=== PATIENT | female | born 1975 | race Caucasian/White ===

== ENCOUNTER 2024-12-27 19:32 | Emergency (ER) | payer SELFPAY ==
--- OUTSIDE RECORDS SUMMARY | 2024-12-27 19:34 | XMS_ITS | Clinical Summary ---
Author Organization [facility] Address [address] [place] [address] Phone Care Team Providers Care Dietetics Professor Name Role Phone Latisha Copeland MD Primary Care Provider Unav ailable Allergies Active Allergy Reactions Criticality Noted Date Comments Ibuprofen Nausea 01/07/2016 Medications gabapentin (NEURONTIN) 600 MG Tablet Take 600 mg by mouth daily. Active traMADol (ULTRAM) 50 MG TabletIndicatio ns:Acute pain of right foot Take 1 Tablet by mouth every 8 hours as needed for Moderate or more severe pain. 12 Tablet 04/30/2023 Active Social History Tobacco Use Types Packs/Day Years Used Date Smoking Tobacco: Never Alcohol Use Standard Drinks/Week Comments No 0 (1 standard drink = 0.6 oz pur e alcohol) Comments No Sex and Gender Information Value Date Recorded Sex Assigned at Not on file Legal Sex Female 10:11 PM CDT Gender Identity Not on file Sexual Orientation Not on file Last Filed Vital Signs Vital Sign Reading Time Taken Comments Blood Pressure 145/96 04/30/2023 5:54 PM CDT Pulse 93 04/30/2023 5:54 PM CDT Temperature 36.3 C (97.4 F) 04/30/2023 5:54 PM CDT Respiratory Rate 18 04/30/2023 5:54 PM CDT Oxygen Saturation 100% 04/30/2023 5:54 PM CDT Inhaled Oxygen Concentration - - Weight 79.4 kg (175 lb) 04/30/2023 5:54 PM CDT Height 170.2 cm (5' 7 ) 04/30/2023 5:54 PM CDT Body Mass Index 27.41 04/30/2023 5:54 PM CDT Plan of Treatment Health Maintenance Due Date Last Done Comments Hepatitis C Virus (HCV) Screening 1974 TdaP Immunization 1974 Hepatitis B Immunization (1 of 3 - 19+ 3-dose series) 1993 Pap Smear 1995 Cervical Cancer Screening (CCS) 2004 HPV/Cotest 2004 Mammogram 01/31/2019 01/31/2018, 01/06/2018 Colonoscopy 2019 Colorectal Cancer Screening 2019 Influenza Immunization (#1) 2024 07/24/2013 SARS-COV-2 Immunization ( season) 2024 01/14/2021, 12/17/2020 Cologuard 2024 Immunochemical Fecal Occult Blood 2024 Pneumococcal Immunization (5 0+ years) (1 of 1 - PCV) 2024 Zoster Immunization (1 of 2) 2024 Respiratory Syncytial Virus (RSV) Immunization (Adult) (1 - 1-dose 75+ series) 2049 Discussion re Starting/Frequency of Mammograms Discontinued 08/07/2018, 01/31/2018, 01/06/2018 Meningococcal Immunization (ACWY) Aged Out No longer eligible based on patient's age to complete this topic Pneumococcal Immunization Combined Aged Out No longer eligible based on patient's age to complete this topic Rotavirus Immunization Aged Out No lo nger eligible based on patient's age to complete this topic Procedures Procedure Name Priority Date/Time Associated Diagnosis Comments HANANE DIAG RIGHT UNILATERAL DIGITAL W CAD W OSVALDO Routine 08/07/2018 2:53 PM GRADES 7 8 TUTOR Unspecified lump in unspecified breast HANANE DIAG BILATERAL DIGITAL W CAD W OSVALDO Routine 01/31/2018 10:08 AM CDT Oth abn and inconclusive findings on dx imaging of breast from Last 3 Months or Most Recently Relevant to Health Maintenance Results * HANANE DIAG RIGHT UNILATERAL DIGITAL W CAD W OSVALDO (08/07/2018 2:53 PM GRADES 7 8 TUTOR) Anatomical Region Laterality Modality breast Right Mammography 08/07/2018 2:33 PM GRADES 7 8 TUTOR Narrative 08/07/2018 3:11 PM GRADES 7 8 TUTOR - HANANE DIAG RIGHT UNILATERAL DIGITAL W CAD W OSVALDO UNILATERAL RIGHT DIGITAL DIAGNOSTIC MAMMOGRAM 3D/2D WITH CAD WITH MEDIOLATERAL OBLIQUE CRANIOCAUDAL: 08/07/2018 The study was acquired using digital technology and interpreted from soft copy. Current study was also evaluated with ICAD version 7.2. CLINICAL: Diagnostic study. Patient returns to evaluate an asymmetry in the right breast. No personal history of cancer. Three sisters with breast cancer. COMPARISONS: Comparison is made to exams dated: 01/31/2018 and 01/06/2018 [facility]. BREAST TISSUE:The tissue of the right breast is heterogeneously dense. This may lower the sensitivity of mammography. FINDINGS: The focal asymmetry in the right breast represents normal fibroglandular tissue. No significant masses, calcifications, or other findings are seen in the breast. There has been no significant interval change. IMPRESSION: BI-RAD 1 NEGATIVE There is no mammographic evidence of malignancy. Return to annual mammogram screening schedule is recommended. The patient has been or will be contacted. Electronically signed by: Drake Castellanos M.D. ds/:08/07/2018 14:52:35 Digital Media Planner: Shyanne Alfonso(Linda), [facility] letter sent: Normal Exam Reading location: [facility] BI-RADS: 1 Negative Procedure Note Drake Castellanos MD - 08/07/2018 - HANANE DIAG RIGHT UNILATERAL DIGITAL W CAD W OSVALDO UNILATERAL RIGHT DIGITAL DIAGNOSTIC MAMMOGRAM 3D/2D WITH CAD WITH MEDIOLATERAL OBLIQUE CRANIOCAUDAL: 08/07/2018 The study was acquired using digital technology and interpreted from soft copy. Current study was also evaluated with ICAD version 7.2. CLINICAL: Diagnostic study. Patient returns to evaluate an asymmetry in the right breast. No personal history of cancer. Three sisters with breast cancer. COMPARISONS: Comparison is made to exams dated: 01/31/2018 and 01/06/2018 [facility]. BREAST TISSUE:The tissue of the right breast is heterogeneously dense. This may lower the sensitivity of mammography. FINDINGS: The focal asymmetry in the right breast represents normal fibroglandular tissue. No significant masses, calcifications, or other findings are seen in the breast. There has been no significant interval change. IMPRESSION: BI-RAD 1 NEGATIVE There is no mammographic evidence of malignancy. Return to annual mammogram screening schedule is recommended. The patient has been or will be contacted. Electronically signed by: Drake Castellanos M.D. ds/:08/07/2018 14:52:35 Digital Media Planner: Shyanne Alfonso(Linda), [facility] letter sent: Normal Exam Reading location: [facility] BI-RADS: 1 Negative us Sarwat Earl IMG MAMMO ORDERABLES Final Resul t * HANANE DIAG BILATERAL DIGITAL W CAD W OSVALDO (01/31/2018 10:08 AM CDT) Anatomical Region Laterality Modality breast Bilateral Mammography 01/31/2018 9:39 AM CDT Narrative 01/31/2018 2:53 PM CDT - HANAEN DIAG BILATERAL DIGITAL W CAD W OSVALDO - HANANE US BREAST LIMITED RT BILATERAL DIGITAL DIAGNOSTIC MAMMOGRAM 3D/2D WITH CAD AND TARGETED RIGHT ULTRASOUND WITH MEDIOLATERAL OBLIQUE CRANIOCAUDAL SPOT COMPRESSION: 01/31/2018 The study was acquired using digital technology and interpreted from soft copy. Current study was also evaluated with ICAD version 7.2. CLINICAL: Diagnostic study. Patient returns from her screening for additional views of the left and right breasts. There was a focal asymmetry noted in the right breast and an asymmetry in the left breast. Patient has no complaints. No personal history of cancer. ister with breast cancer. Three sisters with breast cancer. COMPARISONS: Comparison is made to exam dated: 01/06/2018 [facility]. BREAST TISSUE:The tissue of both breasts is heterogeneously dense. This may lower the sensitivity of mammography. FINDINGS: There is a persistent focal asymmetry in the right breast at 2 o'clock middle depth. No sonographic lesion is identified. This will be classified as probably benign. The asymmetric density in the inferior left breast seen on the MLO view does not persist with additional views. No other significant masses, calcifications, or other findings are seen in either breast on the mammogram or right targeted ultrasound. IMPRESSION: OVERALL STUDY BIRADS: 3 PROBABLY BENIGN The focal asymmetry in the right breast is probably benign. A follow-up mammogram in 6 months is recommended to demonstrate stability. The patient has been or will be contacted. Electronically signed by: Mandy Arceo M.D. ll/:01/31/2018 10:35:02 Digital Media Planner: Lima Alfonso (R), [facility] letter sent: Birad 3 Followup Reading location: [facility] OVERALL STUDY BIRADS: 3 Probably benign Procedure Note Mandy Arceo MD - 01/31/2018 - HANANE DIAG BILATERAL DIGITAL W CAD W OSVALDO - HANANE US BREAST LIMITED RT BILATERAL DIGITAL DIAGNOSTIC MAMMOGRAM 3D/2D WITH CAD AND TARGETED RIGHT ULTRASOUND WITH MEDIOLATERAL OBLIQUE CRANIOCAUDAL SPOT COMPRESSION: 01/31/2018 The study was acquired using digital technology and interpreted from soft copy. Current study was also evaluated with ZoopShop version 7.2. CLINICAL: Diagnostic study. Patient returns from her screening for additional views of the left and right breasts. There was a focal asymmetry noted in the right breast and an asymmetry in the left breast. Patient has no complaints. No personal history of cancer. ister with breast cancer. Three sisters with breast cancer. COMPARISONS: Comparison is made to exam dated: 01/06/2018 [facility]. BREAST TISSUE:The tissue of both breasts is heterogeneously dense. This may lower the sensitivity of mammography. FINDINGS: There is a persistent focal asymmetry in the right breast at 2 o'clock middle depth. No sonographic lesion is identified. This will be classified as probably benign. The asymmetric density in the inferior left breast seen on the MLO view does not persist with additional views. No other significant masses, calcifications, or other findings are seen in either breast on the mammogram or right targeted ultrasound. IMPRESSION: OVERALL STUDY BIRADS: 3 PROBABLY BENIGN The focal asymmetry in the right breast is probably benign. A follow-up mammogram in 6 months is recommended to demonstrate stability. The patient has been or will be contacted. Electronically signed by: Mandy Arceo M.D. ll/:01/31/2018 10:35:02 Digital Media Planner: iLma Alfonso (R), [facility] letter sent: Birad 3 Followup Reading location: [facility] OVERALL STUDY BIRADS: 3 Probably benign us Sarwat Earl IMG MAMMO ORDERABLES Final Resul t from Last 3 Months or Most Recently Relevant to Health Maintenance Insurance [employer] Care Teams Dietetics Professor Relationship Specialty Start Date End Date Latisha Copeland MD PCP - General Family Medicine 01/07/16
--- OUTSIDE RECORDS SUMMARY | 2024-12-27 19:37 | XMS_ITS | Continuity of Care Document ---
Author Organization [facility]. If a dditional information is needed, contact Health Information Management at [phone] [place] [address] Phone Care Team Providers Care Communications Director Name Role Phone Unavailable Unavailable Unavailable Unavailable Unavailable Unavailable Problems Asthmatic bronchitis Onset:19-Dec-2023 Rick Mahan MD Allergies and Adverse Reactions No Known Allergies(Allergy) Onset: 19-Dec-2023 Social History Smoking Status Smokes tobacco daily Recorded: 19-Dec-2023
--- OUTSIDE RECORDS SUMMARY | 2024-12-27 19:37 | XMS_ITS | Data Portability ---
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 lesion Vagina:Normal vaginal discharge Breast:No breast pain; No breast lump; No nipple discharge Current Contraception:Tuba l ligation Sexual complaints:No sexual complaints; No pain during intercourse; Normal libido Menopausal Symptoms:No menopausal symptoms; Normal vaginal lubrication Psychological symptoms:No depression; No anxiety; No PMDD Preventive measures:Needs to schedule mammogram Sarwat Earl MD Attn: [address] [place], [address], [facility] [place]/18/2017 15:49:35 03/18/2024 text/html Annual GYNReport ed bypatient.Menstrua l cycle:Perimenopaus al Urinary symptoms:No hematuria; No incontinence Vulva:No genital lesion Vagina:Normal vaginal discharge Breast:No breast pain; No breast lump; No nipple discharge; Pt has a history of an abnormal mammogram. Current Contraception:Requ ests testing for sexually transmitted infections Sexual complaints:No sexual complaints; No pain during intercourse; Normal libido Menopausal Symptoms:No menopausal symptoms; Normal vaginal lubrication Psychological symptoms:No depression; No anxiety; No PMDD Sarwat Earl MD Attn: [address] [place], [address], [facility] [place] 03/18/2024 18:15:21 OBGyn Episode Ob Episode Information Episode Created Date Number of Fetuses Patient Bloodtype Patient rh Status Prepregnancy Weight lbs Domestic Partner Domestic Partner Phone Father Name Assistant County Attorney Status 03/18/20 24 1 CLOSED Fetus Data First Name Last Name Admitted to NICU Weight (g) Sex Living Outcome Pediatric Complications Fetus ID Race Codes Race Delivery Type M Full Term [id number] Vaginal Jorge Calculation Initial Jorge Date Initial Exam Date Initial Exam Provider Initial Ultrasound Date Last Menstrual Period Date Ultra Sound Weeks Gestation 0 Eighteen To Twenty Week Jorge Update Ultra Sound Date Fundal Height At Umbil Quickening Date Ultra Sound Latest Weeks Gestation Final Jorge Confirmed By Final Jorge Confirmed Date Final Jorge Date Ultra Sound Latest Days Gestation 0 0 Menstrual History Last Menstrual Date Menses Monthly On Bcp Conception Prior Menses Frequency Hcg Plus Date Menarche Onset Age Delivery Information Delivery Date Delivery Type Labor Anesthesia Weeks Gestation Incision Type Labor Labor Length Hrs Delivered By Post Complications Tubal Sterilization Discharge Date Comments 0 40 Discharge Information Feeding Method Contraceptive Method Maternal HG B and HCT Levels Ob Episode Information Episode Created Date Number of Fetuses Patient Bloodtype Patient rh Status Prepregnancy Weight lbs Domestic Partner Domestic Partner Phone Father Name Assistant County Attorney Status 03/18/20 24 1 CLOSED Fetus Data First Name Last Name Admitted to NICU Weight (g) Sex Living Outcome Pediatric Complications Fetus ID Race Codes Race Delivery Type M Full Term [id number] Vaginal Jorge Calculation Initial Jorge Date Initial Exam Date Initial Exam Provider Initial Ultrasound Date Last Menstrual Period Date Ultra Sound Weeks Gestation 0 Eighteen To Twenty Week Jorge Update Ultra Sound Date Fundal Height At Umbil Quickening Date Ultra Sound Latest Weeks Gestation Final Jorge Confirmed By Final Jorge Confirmed Date Final Jorge Date Ultra Sound Latest Days Gestation 0 0 Menstrual History Last Menstrual Date Menses Monthly On Bcp Conception Prior Menses Frequency Hcg Plus Date Menarche Onset Age Delivery Information Delivery Date Delivery Type Labor Anesthesia Weeks Gestation Incision Type Labor Labor Length Hrs Delivered By Post Complications Tubal Sterilization Discharge Date Comments 1 Discharge Information Feeding Method Contraceptive Method Maternal HG B and HCT Levels Ob Episode Information Episode Created Date Number of Fetuses Patient Bloodtype Patient rh Status Prepregnancy Weight lbs Domestic Partner Domestic Partner Phone Father Name Assistant County Attorney Status 03/18/20 24 1 CLOSED Fetus Data First Name Last Name Admitted to NICU Weight (g) Sex Living Outcome Pediatric Complications Fetus ID Race Codes Race Delivery Type M Full Term [id number] Vaginal Jorge Calculation Initial Jorge Date Initial Exam Date Initial Exam Provider Initial Ultrasound Date Last Menstrual Period Date Ultra Sound Weeks Gestation 0 Eighteen To Twenty Week Jorge Update Ultra Sound Date Fundal Height At Umbil Quickening Date Ultra Sound Latest Weeks Gestation Final Jorge Confirmed By Final Jorge Confirmed Date Final Jorge Date Ultra Sound Latest Days Gestation 0 0 Menstrual History Last Menstrual Date Menses Monthly On Bcp Conception Prior Menses Frequency Hcg Plus Date Menarche Onset Age Delivery Information Delivery Date Delivery Type Labor Anesthesia Weeks Gestation Incision Type Labor Labor Length Hrs Delivered By Post Complications Tubal Sterilization Discharge Date Comments 2 Discharge Information Feeding Method Contraceptive Method Maternal HG B and HCT Levels
[2024-12-27 19:38] VITALS: BP 162/78; PULSE 102; RESP 26; TEMP 36.6; O2SAT 99
--- NOTE | 2024-12-27 19:58 | ED_ITS ---
HPI - URI/Sore Throat General Chief Complaint: Upper Respiratory Infection Stated Complaint: cough/wheezing Time Seen by Provider: 12/27/24 19:58 Source: patient Mode of arrival: ambulatory Limitations: no limitations History of Present Illness HPI Narrative: 49-year-old female presented for complaint of cough, Wheezing, chest congestion and runny nose for 3 days. Endorses shortness of breath with exertion. denies nausea, vomiting, diarrhea, fevers or chills. Has tried [id number] cough syrup. Related Data Allergies Allergy/AdvReac Type Severity Reaction Status Date / Time No Known Allergies Allergy Verified 12/27/24 19:41 Review of Systems Review of Systems: CONSTITUTIONAL: Denies body aches, fever, chills, or sweats. EYES: Denies visual changes, redness, or discharge. ENT: Denies rhinorrhea, congestion, denies sore throat, or otalgia. CARDIOVASCULAR: Denies chest pain, palpitations, or edema. RESPIRATORY: Reports cough, sob, wheezing. SKIN: Denies rash NEUROLOGIC: Denies headache All systems reviewed & are unremarkable except as noted in HPI and below PMFSH Comments At time of signature, I have reviewed and agree with nursing past medical, surgical, social and family history unless otherwise noted. Please see nursing chart for further information. There is no relevant family history pertinent to the presenting complaint Exam Narrative: GENERAL: Well-appearing, in no acute distress. EYES: EOMI. No redness or drainage. Conjunctivae normal. ENT: Mucous membranes pink and moist. No rhinorrhea. TMs normal bilaterally. Throat normal. Uvula midline. NECK: Normal AROM. Supple. CHEST: No respiratory distress. lungs coarse with scattered wheezing to all dailey. HEART: Regular rate and rhythm. No murmur appreciated. SKIN: Warm, dry, no rash. Capillary refill normal. Normal skin turgor. NEURO: Alert and oriented x3. Gait steady. PSYCH: Normal affect. Course Course Emergency Course: Patient is aware of diagnosis, understands and agrees to treatment plan. Anticipatory guidance given. Patient agrees to follow-up as directed and is aware of reasons to seek care at the emergency department. Portions of this record may have been created with voice recognition software Level of Care: Express Care Visit Vital Signs Vital signs: Vital Signs Temperature 98 F 12/27/24 19:38 Pulse Rate 102 H 12/27/24 19:38 Respiratory Rate 26 H 12/27/24 19:38 Blood Pressure 162/78 H 12/27/24 19:38 Pulse Oximetry 99 12/27/24 19:38 Oxygen Delivery Room Air 12/27/24 19:38 Temperature 98 F 12/27/24 19:38 Pulse Rate 102 H 12/27/24 19:38 Respiratory Rate 26 H 12/27/24 19:38 Blood Pressure 162/78 H 12/27/24 19:38 Pulse Oximetry 99 12/27/24 19:38 Oxygen Delivery Room Air 12/27/24 19:38 MDM - URI/Sore Throat MDM Narrative Medical decision making narrative: Discussed physical exam findings. Advised supportive measures and signs/symptoms to go to the ER. Pt is appropriate for outpt treatment and f/u. Differential Diagnosis Differential diagnosis: Likely upper respiratory infection, sinusitis, viral infection, bronchitis, influenza, pharyngitis and other (pneumonia) Discharge Plan Discharge Clinical Impression: Bronchitis Patient Disposition: Home, Self-Care Condition: Stable Instructions: Antibiotic Form, Acute Bronchitis (ED) Additional Instructions: Acute bronchitis can be contagious because it is usually caused by infection with a virus or bacteria. It is usually for a few days but you can be contagious for up to one week. Avoid crowds until you do not have a fever and symptoms are improved Take medication as directed use the albuterol every 4-6 hours for the next 2 days Recommendations: over the counter Cough syrup may cause drowsiness; avoid driving or take it at night time. Tylenol 1000mg every 8 hours as needed for pain Symptomatic treatment includes: rest, push fluids, and increase humidity of the air at home. Follow up with your primary care provider as needed in 1 week Go to the ER for worsening symptoms or concerns Patient Language: Icelandic Prescriptions: New azithromycin [Zithromax Z-Carl] 250 mg tablet See Rx Instructions .ROUTE .COMPLEX Qty: 6 0RF Rx Instructions: For 250 mg dose pack: take 500 mg today (day 1), then 250 mg for 4 days (days 2-5) prednisone 20 mg tablet 20 mg PO DAILY Qty: 12 0RF Rx Instructions: take 3 tablets daily for 2 days, then 2 tablets daily for 2 days then 1 tablet daily for 2 days albuterol sulfate 90 mcg/actuation HFA aerosol inhaler 2 inh inhalation QID PRN (Reason: shortness of breath or wheezing) Qty: 8.5 0RF Follow-up/Referrals: PHYSICIAN,TYRE FINISHER AND EXAMINER [Primary Care Provider] - Time of Disposition: 20:04
== END 2024-12-27 20:08 | disposition home or self-care (01) ==
PROVIDERS: Emergency Provider Nurse Practitioner Family
DX: J40 Bronchitis, not specified as acute or chronic (principal); I10 Essential (primary) hypertension
CPT/HCPCS: 99203; G0463